=== PATIENT | female | born 1935 | race Caucasian/White ===

== ENCOUNTER 2020-05-31 09:46 | Emergency (ER) | payer OTHER, SELFPAY ==
[2020-05-31 10:29] LABS: ALBUMIN 2.3 g/dL (3.4-5.0); BILIRUBIN - TOTAL 0.7 mg/dL (0.2-1.0); BUN/CREAT RATIO (CALC) 21.1 RATIO; CREATININE 0.76 mg/dL (0.51-0.95); GLOBULIN (CALCULATION) 4.1 g/dL; POTASSIUM 3.3 mmol/L (3.5-5.1); TOTAL PROTEIN 6.4 g/dL (6.4-8.2)
[2020-05-31 10:31] LABS: BASOPHIL 0.6 % (0-2); EOSINOPHIL 0.1 % (0-7); HCT 37.8 % (37.0-47.0); HGB 11.9 g/dl (12.5-16.0); MCH 27.3 pg (25.0-31.0); MCHC 31.5 g/dL (32.0-36.0); MCV 86.7 fL (78.0-100.0); MONOCYTE 5.5 % (0-12); MPV 10.6 fL (6.0-9.5); NEUTROPHIL 76.3 % (41-80); NRBC 0.4; RBC 4.36 M/uL (4.20-5.40); WBC 10.5 K/uL (4.0-10.5)
[2020-05-31 10:44] LABS: PLT 316 K/uL (150-400)
[2020-05-31 11:47] LABS: INR 1.28 (0.9-1.2); PROTHROMBIN TIME 15.2 SECONDS (11.4-13.6)
[2020-05-31 13:01] LABS: BILIRUBIN 1+ mg/dL (NEGATIVE); BLOOD 3+ Ery/uL (NEGATIVE); CLARITY CLOUDY (CLEAR); COLOR YELLOW (YELLOW); GLUCOSE (U) NORMAL (NORMAL); LEUKOCYTES 1+ Leu/uL (NEGATIVE); NITRITE NEGATIVE (NEGATIVE); PROTEIN TRACE (LOW) mg/dL (NEGATIVE); SPECIFIC GRAVITY <=1.005 (1.001-1.030); pH 6.5 (5.0-9.0)
[2020-05-31 13:09] LABS: AMORPHOUS URATES CRYSTALS MODERATE
[2020-05-31 13:11] LABS: BACTERIA 2+; MUCOUS MODERATE
[2020-05-31 13:30] LABS: CORONAVIRUS 2019 SARS-COV-2 NEGATIVE (NEGATIVE); INFLUENZA A NAA NEGATIVE (NEGATIVE)
[2020-07-09] MEDS ORDERED: STOOL SOFTENER100 MG PO (10:14)
[2020-07-09] MEDS ORDERED: OCUVITE ADULT1 EACH PO (10:15)
[2020-07-09] MEDS ORDERED: VITAMIN D350 MC3 PO (10:15)
[2020-07-09] MEDS ORDERED: CALCIUM500 MG PO (10:15)
[2020-07-09] MEDS ORDERED: ZYRTEC10 M3 PO (10:15)
[2020-07-09] MEDS ORDERED: LEXAPRO 10MG TA10 MG PO (10:16)
[2020-07-09] MEDS ORDERED: PROBIOTIC1 EACH PO (10:16)
== END 2020-05-31 15:10 | disposition home or self-care (01) ==
LOC: FER 09:46
PROVIDERS: Emergency Medicine
DX: C22.8 Malignant neoplasm of liver, primary, unspecified as to type (principal); C79.51 Secondary malignant neoplasm of bone; E87.6 Hypokalemia; K62.89 Other specified diseases of anus and rectum; R19.7 Diarrhea, unspecified; Z88.0 Allergy status to penicillin; Z85.3 Personal history of malignant neoplasm of breast; Z90.11 Acquired absence of right breast and nipple; Z20.822 Contact with and (suspected) exposure to COVID-19
CPT/HCPCS: 36415; 71260; 80053; 81001; 83690; 85025; 85610; G0463; J7030; Q9967; U0002

== ENCOUNTER 2020-07-25 15:54 | Day surgery (SDCO) | payer OTHER, SELFPAY ==
[~2020-07-25] VITALS: Ht 157.5 cm; Wt 59.9 kg
[~2020-07-25 15:54] MED LIST: CALCIUM500 MG PO; LEXAPRO 10MG TA10 MG PO; OCUVITE ADULT1 EACH PO; PROBIOTIC1 EACH PO; STOOL SOFTENER100 MG PO; VITAMIN D350 MC3 PO; ZYRTEC10 M3 PO
[2020-07-25 17:46] LABS: BASOPHIL 0.8 % (0-2); EOSINOPHIL 0.3 % (0-7); HCT 32.8 % (37.0-47.0); HGB 10.5 g/dl (12.5-16.0); LYMPHOCYTE 13.7 % (15-48); MCH 28.5 pg (25.0-31.0); MCV 89.1 fL (78.0-100.0); MONOCYTE 4.9 % (0-12); MPV 10.5 fL (6.0-9.5); NEUTROPHIL 69.3 % (41-80); NRBC 3.5; PLT 137 K/uL (150-400); RBC 3.68 M/uL (4.20-5.40); RDW 23.4 % (11.5-14.0)
[2020-07-25 17:48] LABS: WBC 11.5 K/uL (4.0-10.5)
[2020-07-25 17:54] LABS: INR 1.27 (0.9-1.2); PROTHROMBIN TIME 15.1 SECONDS (11.4-13.6); PTT 33.4 SECONDS (22.2-34.7)
[2020-07-25 17:55] LABS: BILIRUBIN 3+ mg/dL (NEGATIVE); BLOOD NEGATIVE Ery/uL (NEGATIVE); CLARITY HAZY (CLEAR); COLOR ORANGE (YELLOW); GLUCOSE (U) NORMAL (NORMAL); LEUKOCYTES NEGATIVE Leu/uL (NEGATIVE); NITRITE NEGATIVE (NEGATIVE); PROTEIN 1+ mg/dL (NEGATIVE); SPECIFIC GRAVITY 1.025 (1.001-1.030); UROBILINOGEN >=8.0 mg/dL (0.2-1.0); pH 5.5 (5.0-9.0)
[2020-07-25 18:01] LABS: ALBUMIN 1.8 g/dL (3.4-5.0); BILIRUBIN - TOTAL 2.9 mg/dL (0.2-1.0); CREATININE 0.8 mg/dL (0.51-0.95); GLOBULIN (CALCULATION) 4.1 g/dL; TOTAL PROTEIN 5.9 g/dL (6.4-8.2)
[2020-07-25 18:02] LABS: MUCOUS TRACE; SQUAMOUS EPITHELIAL CELLS RARE
[2020-07-25 18:04] LABS: POTASSIUM 4.1 mmol/L (3.5-5.1)
--- NOTE | 2020-07-26 12:13 | NUR ---
I have reviewed the assessment documented by the Student Nurse and agree with the findings.
--- NOTE | 2020-07-26 13:11 | NUR ---
MET WITH PATIENT. SHE SAID THAT SHE HAD JUST STARTED WITH HH, BUT COULDN'T REMEMBER THE NAME. SHE HAS A ROLLATOR, SHOWER SEAT, 07/01. DISUSSED THE POSSIBILITY OF HAVING HOSPICE, PT. STATED THAT SHE WAS NOT INTERESTED IN HOSPICE OR A CORRECTION. HOWEVER, SHE STATED THAT HER SON AND HIS GIRLFRIEND (PT CAREGIVER WELL) WILL BE MEETING WITH HER TONIGHT AND MAKING DECISIONS AT THAT TIME. PT. GAVE ME PERMISSION TO CALL TALIA GARCIA, (SON'S GIRLFRIEND). TC TO [facility]I. SHE STATED THAT SHE IS PT. CAREGIVER EXCEPT ON , , WEDNESDAY AT WHICH TIME PT. HAS ANOTHER CAREGIVER. ACCORDING TO ROSI SHE STATED THAT SHE AND BRANDO WOULD BE MEETING WITH THE PT. THIS EVENING TO DISCUSS OPTIONS FOR THE PATIENT. PT. IS CURRENT WITH [facility]. I DID ADVISED ROSI THAT THE HAS RECOMMENDED HOSPICE. [facility]I STATED THAT THEY WOULD NOT MAKE ANY DECISIONS WITHOUT SPEAKING WITH THE PATIENT. PT. SON WORKS AT [facility] AND IS UNAVAILABLE TO SPEAK WITH ME AT THIS TIME. I ADVISED THAT THE [facility] ON WEDNESDAY WOULD BE CONTACTING BRANDO TO DISCUSS HIS MOTHER'S OPTIONS. I DID ADVISE [facility]OUGH [facility] THAT PT IS A PATIENT AT [facility].
--- NOTE | 2020-07-26 13:44 | NUR ---
ADVISED DR. FUENTES OF THE FAMILY'S PLAN FOR A MEEETING WELL JUSTIN THE NURSE.
[2020-07-27 06:14] LABS: ALBUMIN 1.5 g/dL (3.4-5.0); BILIRUBIN - TOTAL 2.5 mg/dL (0.2-1.0); CREATININE 0.77 mg/dL (0.51-0.95); GLOBULIN (CALCULATION) 3.3 g/dL; POTASSIUM 3.7 mmol/L (3.5-5.1); TOTAL PROTEIN 4.8 g/dL (6.4-8.2)
--- NOTE | 2020-07-27 11:35 | NUR ---
07/27/20 Follow-up conversations took place from Rocky Mejia's assessment / intervention of 07/26/20. Aldo Garces, son, was educated to Hospice services. Patient and family wish to return home with [facility]. - Hospice will provide an educational visit. - Marija Duncan was notified of discharge.
[2020-07-27] MEDS ORDERED: MEGACE ORA6 TSP/1 OZ PO (13:35)
--- NOTE | 2020-07-27 14:25 | NUR ---
FAMILY MEMBER ASKED ABOUT WHEELCHAIR, PATIENT HAS ROLLINATOR, PATIENT FAMILY MEMBER STATES THEY ALREADY HAVE AN ORDER FOR ONE BUT HAD TOLD THEM THEY DIDN'T NEED IT, BUT SHE WILL CALL TO GET IT ORDERED NOW.
== END 2020-07-27 13:45 | disposition home health service (06) ==
LOC: FER 15:54 → FMS 18:21
PROVIDERS: Emergency Medicine; ADMIT Allergy & Immunology Allergy
DX: R55 Syncope and collapse (principal); R62.7 Adult failure to thrive; C78.00 Secondary malignant neoplasm of unspecified lung; C78.7 Secondary malignant neoplasm of liver and intrahepatic bile duct; C77.9 Secondary and unspecified malignant neoplasm of lymph node, unspecified; C79.51 Secondary malignant neoplasm of bone; C50.919 Malignant neoplasm of unspecified site of unspecified female breast; E86.0 Dehydration; E46 Unspecified protein-calorie malnutrition; N17.9 Acute kidney failure, unspecified; R10.819 Abdominal tenderness, unspecified site; M81.0 Age-related osteoporosis without current pathological fracture; Z87.891 Personal history of nicotine dependence; Z98.890 Other specified postprocedural states; Z68.24 Body mass index [BMI] 24.0-24.9, adult; Z88.0 Allergy status to penicillin; Z91.040 Latex allergy status; Z91.041 Radiographic dye allergy status; Z79.899 Other long term (current) drug therapy; Z20.822 Contact with and (suspected) exposure to COVID-19; R10.9 Unspecified abdominal pain
CPT/HCPCS: 36415; 70450; 71250; 80053; 81001; 83735; 84484; 85025; 85610; 85730; 87088; 93005; 97110; 97116; 97162; 97166; 97530; 97530-GP; 97535; G0378; J2405; J7030; U0002

== ENCOUNTER 2020-08-21 14:53 | Inpatient (IN) | payer OTHER, SELFPAY ==
[~2020-08-21 14:53] MED LIST changes: +MEGACE ORA6 TSP/1 OZ PO
[2020-08-21 19:20] LABS: BASOPHIL 0 % (0-2); EOSINOPHIL 0.7 % (0-7); HCT 24.8 % (37.0-47.0); HGB 8.2 g/dl (12.5-16.0); LYMPHOCYTE 67.3 % (15-48); MCH 33.1 pg (25.0-31.0); MCHC 33.1 g/dL (32.0-36.0); MONOCYTE 1.3 % (0-12); NRBC 0; RBC 2.48 M/uL (4.20-5.40); RDW 25.2 % (11.5-14.0)
[2020-08-21 19:27] LABS: INR 1.2 (0.9-1.2); PROTHROMBIN TIME 14.4 SECONDS (11.4-13.6); PTT 36.8 SECONDS (22.2-34.7)
[2020-08-21 19:30] LABS: PLT 24 K/uL (150-400); WBC 1.5 K/uL (4.0-10.5)
[2020-08-21 19:35] LABS: BILIRUBIN - TOTAL 1.4 mg/dL (0.2-1.0); BUN/CREAT RATIO (CALC) 26.4 RATIO; CREATININE 0.91 mg/dL (0.51-0.95); GLOBULIN (CALCULATION) 3.4 g/dL; POTASSIUM 3.9 mmol/L (3.5-5.1); TOTAL PROTEIN 5.4 g/dL (6.4-8.2)
[2020-08-21 20:16] LABS: BILIRUBIN NEGATIVE (NEGATIVE); BLOOD 3+ Ery/uL (NEGATIVE); CLARITY CLOUDY (CLEAR); COLOR RED (YELLOW); GLUCOSE (U) NORMAL (NORMAL); LEUKOCYTES NEGATIVE Leu/uL (NEGATIVE); NITRITE NEGATIVE (NEGATIVE); PROTEIN 2+ mg/dL (NEGATIVE); SPECIFIC GRAVITY >=1.030 (1.001-1.030); pH 5.5 (5.0-9.0)
[2020-08-21 20:19] LABS: SQUAMOUS EPITHELIAL CELLS RARE; URINARY RBC TNTC
[2020-08-22 05:56] LABS: BASOPHIL 0.7 % (0-2); EOSINOPHIL 0.7 % (0-7); HCT 25.1 % (37.0-47.0); HGB 8.2 g/dl (12.5-16.0); LYMPHOCYTE 67.9 % (15-48); MCH 32.9 pg (25.0-31.0); MCHC 32.7 g/dL (32.0-36.0); MCV 100.8 fL (78.0-100.0); MONOCYTE 2.9 % (0-12); MPV 11.4 fL (6.0-9.5); NEUTROPHIL 27.8 % (41-80); NRBC 0; RBC 2.49 M/uL (4.20-5.40); RDW 25.4 % (11.5-14.0)
[2020-08-22 06:02] LABS: INR 1.23 (0.9-1.2); PROTHROMBIN TIME 14.7 SECONDS (11.4-13.6)
[2020-08-22 06:35] LABS: WBC 1.4 K/uL (4.0-10.5)
[2020-08-22 06:37] LABS: PLT 23 K/uL (150-400)
[2020-08-22 06:47] LABS: BILIRUBIN - TOTAL 1.5 mg/dL (0.2-1.0); BUN/CREAT RATIO (CALC) 25.9 RATIO; CREATININE 0.85 mg/dL (0.51-0.95); GLOBULIN (CALCULATION) 3.3 g/dL; POTASSIUM 3.9 mmol/L (3.5-5.1); TOTAL PROTEIN 5.3 g/dL (6.4-8.2)
[2020-08-22 07:51] LABS: D-DIMER 7.51 ug/mLFEU (0.00-0.41)
[2020-08-23 06:33] LABS: HCT 22.1 % (37.0-47.0); HGB 7.2 g/dl (12.5-16.0); LYMPHOCYTE 67.3 % (15-48); MCH 32.7 pg (25.0-31.0); MCHC 32.6 g/dL (32.0-36.0); MCV 100.5 fL (78.0-100.0); MONOCYTE 1.9 % (0-12); MPV 11.7 fL (6.0-9.5); NEUTROPHIL 27.8 % (41-80); NRBC 0; RDW 25.3 % (11.5-14.0)
[2020-08-23 06:45] LABS: BUN/CREAT RATIO (CALC) 21.2 RATIO; CREATININE 0.85 mg/dL (0.51-0.95)
[2020-08-23 06:59] LABS: PLT 42 K/uL (150-400)
--- NOTE | 2020-08-23 14:42 | NUR ---
PT. IS CURRENT WITH [facility]. PLEASE NOTIFY [facility] IF PT D/C HOME OVER THE WEEKEND.
[2020-08-24 04:32] LABS: BASOPHIL 0.6 % (0-2); EOSINOPHIL 1.2 % (0-7); HCT 24.7 % (37.0-47.0); HGB 8.3 g/dl (12.5-16.0); MCH 32.7 pg (25.0-31.0); MCHC 33.6 g/dL (32.0-36.0); MCV 97.2 fL (78.0-100.0); MONOCYTE 2.5 % (0-12); MPV 10.9 fL (6.0-9.5); NEUTROPHIL 18.4 % (41-80); NRBC 0; RBC 2.54 M/uL (4.20-5.40); RDW 23.4 % (11.5-14.0)
[2020-08-24 04:38] LABS: LYMPHOCYTE 77.3 % (15-48)
[2020-08-24 04:47] LABS: WBC 1.6 K/uL (4.0-10.5)
[2020-08-24 04:48] LABS: PLT 33 K/uL (150-400)
[2020-08-24 04:51] LABS: POTASSIUM 4.7 mmol/L (3.5-5.1)
[2020-08-24] MEDS ORDERED: LASIX40 MG PO (07:48)
[2020-08-24] MEDS ORDERED: LEVAQUIN500 MG PO (07:48)
[2020-08-24 18:08] LABS: HEPARIN INDUCED PLATELET AB 0.052 OD (0.000-0.400)
[2020-08-24 21:08] LABS: APTT 27.1 sec (22.9-30.2)
== END 2020-08-24 13:00 | disposition home or self-care (01) | DRG 808 ==
LOC: FER 14:53 → FMS 22:02
PROVIDERS: Allergy & Immunology Allergy; Nurse Practitioner; Nurse Practitioner Family; ADMIT Internal Medicine
PROC: 30233R1 Transfusion of Nonautologous Platelets into Peripheral Vein, Percutaneous Approach (ICD-10-PCS; 2020-08-22)
PROC: 30233N1 Transfusion of Nonautologous Red Blood Cells into Peripheral Vein, Percutaneous Approach (ICD-10-PCS; principal; 2020-08-23)
PROC: 30233K1 Transfusion of Nonautologous Frozen Plasma into Peripheral Vein, Percutaneous Approach (ICD-10-PCS; 2020-08-24)
DX: D61.810 Antineoplastic chemotherapy induced pancytopenia (principal); J18.9 Pneumonia, unspecified organism; D68.9 Coagulation defect, unspecified; C79.51 Secondary malignant neoplasm of bone; C78.00 Secondary malignant neoplasm of unspecified lung; C78.7 Secondary malignant neoplasm of liver and intrahepatic bile duct; R18.8 Other ascites; N85.00 Endometrial hyperplasia, unspecified; Z20.822 Contact with and (suspected) exposure to COVID-19; T45.1X5A Adverse effect of antineoplastic and immunosuppressive drugs, initial encounter; Z66 Do not resuscitate; M81.0 Age-related osteoporosis without current pathological fracture; E11.9 Type 2 diabetes mellitus without complications; N93.9 Abnormal uterine and vaginal bleeding, unspecified; F41.9 Anxiety disorder, unspecified; R22.42 Localized swelling, mass and lump, left lower limb; Z85.3 Personal history of malignant neoplasm of breast; Z88.0 Allergy status to penicillin; Z91.040 Latex allergy status; Z90.11 Acquired absence of right breast and nipple; Z98.890 Other specified postprocedural states; Z90.49 Acquired absence of other specified parts of digestive tract; Z90.710 Acquired absence of both cervix and uterus; Z88.8 Allergy status to other drugs, medicaments and biological substances; Z87.891 Personal history of nicotine dependence; Z79.899 Other long term (current) drug therapy
CPT/HCPCS: 36415; 36430; 71045; 76856; 80048; 80053; 81001; 82150; 83690; 85025; 85379; 85384; 85610; 85670; 85730; 85732; 86022; 86850; 86900; 86901; 86922; 93970; 97110; 97116; 97162; 97166; 97530-GP; 97535; J7030; P9016; P9017; P9035; Q9967; U0002

== ENCOUNTER 2020-09-20 14:46 | Emergency (ER) | payer OTHER, SELFPAY ==
[~2020-09-20 14:46] MED LIST changes: +LASIX40 MG PO; +LEVAQUIN500 MG PO
[2020-09-20 15:51] LABS: BASOPHIL 0.2 % (0-2); EOSINOPHIL 0.1 % (0-7); HCT 32.4 % (37.0-47.0); HGB 10.8 g/dl (12.5-16.0); LYMPHOCYTE 7.9 % (15-48); MCH 33.6 pg (25.0-31.0); MCHC 33.3 g/dL (32.0-36.0); MCV 100.9 fL (78.0-100.0); MONOCYTE 12.4 % (0-12); MPV 11.4 fL (6.0-9.5); NEUTROPHIL 78.3 % (41-80); NRBC 0.4; PLT 143 K/uL (150-400); RBC 3.21 M/uL (4.20-5.40); RDW 23.1 % (11.5-14.0); WBC 8.5 K/uL (4.0-10.5)
[2020-09-20 15:57] LABS: INR 1.49 (0.9-1.2); PROTHROMBIN TIME 17.1 SECONDS (11.4-13.6)
[2020-09-20 16:02] LABS: BILIRUBIN 2+ mg/dL (NEGATIVE); BLOOD NEGATIVE Ery/uL (NEGATIVE); COLOR ORANGE (YELLOW); GLUCOSE (U) NORMAL (NORMAL); LEUKOCYTES TRACE Leu/uL (NEGATIVE); NITRITE POSITIVE (NEGATIVE); PROTEIN TRACE (LOW) mg/dL (NEGATIVE); SPECIFIC GRAVITY 1.025 (1.001-1.030)
[2020-09-20 16:05] LABS: ALBUMIN 2.2 g/dL (3.4-5.0); BILIRUBIN - TOTAL 7.4 mg/dL (0.2-1.0); BUN/CREAT RATIO (CALC) 24.2 RATIO; CREATININE 0.91 mg/dL (0.51-0.95); GLOBULIN (CALCULATION) 3.8 g/dL
[2020-09-20 16:06] LABS: CLARITY HAZY (CLEAR); URINARY WBC TNTC
[2020-09-20 16:07] LABS: BACTERIA 1+; URINARY RBC RARE; YEAST PRESENT
== END 2020-09-20 19:00 | disposition home or self-care (01) ==
LOC: FER 14:46
PROVIDERS: Emergency Medicine
DX: N39.0 Urinary tract infection, site not specified (principal); C50.919 Malignant neoplasm of unspecified site of unspecified female breast; R19.7 Diarrhea, unspecified; Z90.49 Acquired absence of other specified parts of digestive tract; Z90.11 Acquired absence of right breast and nipple; Z88.0 Allergy status to penicillin
CPT/HCPCS: 36415; 71045; 80053; 81001; 85025; 85610; 96365; J0696; Q9967

== ENCOUNTER 2020-10-07 13:42 | Inpatient (IN) | payer OTHER ==
[~2020-10-07] VITALS: Ht 152.4 cm; Wt 55.1 kg
[2020-10-07 16:13] LABS: BASOPHIL 0.4 % (0-2); EOSINOPHIL 0.5 % (0-7); HCT 32.8 % (37.0-47.0); HGB 10.7 g/dl (12.5-16.0); LYMPHOCYTE 12.9 % (15-48); MCH 35.4 pg (25.0-31.0); MCHC 32.6 g/dL (32.0-36.0); MCV 108.6 fL (78.0-100.0); MONOCYTE 8.2 % (0-12); MPV 10.9 fL (6.0-9.5); NEUTROPHIL 76.4 % (41-80); NRBC 0.2; PLT 169 K/uL (150-400); RBC 3.02 M/uL (4.20-5.40); RDW 24.1 % (11.5-14.0); WBC 10.6 K/uL (4.0-10.5)
[2020-10-07 16:30] LABS: BUN/CREAT RATIO (CALC) 24.7 RATIO; CREATININE 1.66 mg/dL (0.51-0.95); GLOBULIN (CALCULATION) 3.6 g/dL; POTASSIUM 3.2 mmol/L (3.5-5.1); TOTAL PROTEIN 5.6 g/dL (6.4-8.2)
[2020-10-07 19:27] LABS: INR 1.62 (0.9-1.2); PROTHROMBIN TIME 18.3 SECONDS (11.4-13.6)
[2020-10-07 19:28] LABS: PTT 39.8 SECONDS (22.2-34.7)
[2020-10-07] MEDS ORDERED: PERCOCET 5-3251 EACH PO (20:12)
[2020-10-07] MEDS ORDERED: OS-CAL500 MG PO (20:13)
[2020-10-07] MEDS ORDERED: VITAMIN D31250 MC1 PO (20:15)
[2020-10-08 06:20] LABS: BASOPHIL 0.4 % (0-2); EOSINOPHIL 0.4 % (0-7); HCT 32.8 % (37.0-47.0); HGB 10.5 g/dl (12.5-16.0); LYMPHOCYTE 12.4 % (15-48); MCH 35.5 pg (25.0-31.0); MCV 110.8 fL (78.0-100.0); MONOCYTE 8.9 % (0-12); NEUTROPHIL 76.5 % (41-80); NRBC 0; PLT 152 K/uL (150-400); RBC 2.96 M/uL (4.20-5.40); RDW 24.2 % (11.5-14.0); WBC 10.2 K/uL (4.0-10.5)
[2020-10-08 06:21] LABS: MPV 11.3 fL (6.0-9.5)
[2020-10-08 07:27] LABS: ALBUMIN 1.9 g/dL (3.4-5.0); BUN/CREAT RATIO (CALC) 23.3 RATIO; CREATININE 1.89 mg/dL (0.51-0.95); POTASSIUM 3.6 mmol/L (3.5-5.1); TOTAL PROTEIN 4.9 g/dL (6.4-8.2)
[2020-10-08 07:32] LABS: BILIRUBIN - TOTAL 10.9 mg/dL (0.2-1.0)
[2020-10-09 10:26] LABS: HCT 33.7 % (37.0-47.0); MCH 35.8 pg (25.0-31.0); MCHC 29.7 g/dL (32.0-36.0); MPV 11.6 fL (6.0-9.5); RBC 2.79 M/uL (4.20-5.40); RDW 24.5 % (11.5-14.0); WBC 14.8 K/uL (4.0-10.5)
[2020-10-09 10:31] LABS: MCV 120.8 fL (78.0-100.0)
[2020-10-09 15:57] LABS: ALBUMIN 1.9 g/dL (3.4-5.0); ALKALINE PHOSHATASE 179 U/L (46-116); ALT 299 U/L (14-59); BILIRUBIN - TOTAL 12.8 mg/dL (0.2-1.0); BUN 52 mg/dL (7-18); BUN/CREAT RATIO (CALC) 19.8 RATIO; CHLORIDE 101 mmol/L (98-107); CO2 (BICARBONATE) 8 mmol/L (21-32); CREATININE 2.63 mg/dL (0.51-0.95); GLOBULIN (CALCULATION) 3.8 g/dL; GLUCOSE 169 mg/dL (74-106); TOTAL PROTEIN 5.7 g/dL (6.4-8.2)
[2020-10-09 16:01] LABS: POTASSIUM 5.2 mmol/L (3.5-5.1)
== END 2020-10-09 22:00 | disposition expired | DRG 435 ==
LOC: FER 13:42 → FMS 18:49
PROVIDERS: Emergency Medicine; Nurse Practitioner; ADMIT Internal Medicine
PROC: 8E0ZXY6 Isolation (ICD-10-PCS; principal; 2020-10-07)
DX: C78.7 Secondary malignant neoplasm of liver and intrahepatic bile duct (principal); K72.00 Acute and subacute hepatic failure without coma; N17.9 Acute kidney failure, unspecified; A04.72 Enterocolitis due to Clostridium difficile, not specified as recurrent; N39.0 Urinary tract infection, site not specified; C79.51 Secondary malignant neoplasm of bone; C78.01 Secondary malignant neoplasm of right lung; R18.8 Other ascites; E86.0 Dehydration; E11.9 Type 2 diabetes mellitus without complications; Z66 Do not resuscitate; Z20.822 Contact with and (suspected) exposure to COVID-19; Z51.5 Encounter for palliative care; M81.0 Age-related osteoporosis without current pathological fracture; Z88.0 Allergy status to penicillin; Z91.040 Latex allergy status; Z90.710 Acquired absence of both cervix and uterus; Z90.49 Acquired absence of other specified parts of digestive tract; Z85.3 Personal history of malignant neoplasm of breast; Z90.10 Acquired absence of unspecified breast and nipple; Z98.890 Other specified postprocedural states
CPT/HCPCS: 36415; 71045; 74018; 80053; 82140; 83735; 85025; 85610; 85730; 94667; 94668; C9113; J0780; J1170; J1650; J2060; J2270; J2405; J3480; J7030; U0002